=== PATIENT | male | born 1985 | race Caucasian/White ===

== ENCOUNTER 2018-06-30 17:47 | Emergency (ER) | payer OTHER ==
--- NOTE | 2018-06-30 18:11 | PDOC ---
Rapid Medical Evaluation Chief Complaint: Psychiatric Time Seen by Provider: 06/30/18 18:09 Medical Evaluation: 06/30/18 18:10 HPI: Psych history of self injury and passing out [place] in [place] does not remember going home after ETOH and drug use. PE: Multiple lacerations R forearm ORDERS: Tox screen Discharge Disposition - Diagnosis Suicidal behavior - Referrals - Patient Instructions - Post Discharge Activity
[2018-06-30 18:20] VITALS: BMI 19.8
--- NOTE | 2018-06-30 18:49 | PDOC ---
History of Present Illness - General Chief Complaint: Psychiatric Stated Complaint: Psychiatric Time Seen by Provider: 06/30/18 18:09 - History of Present Illness Initial Comments: 06/30/18 19:41 The patient is a 32 year old male with a history of depression, anxiety who presents for evaluation of suicidal ideation and self harm. The patient is accompanied by family who brought the patient for evaluation. The patient notes that he cut his arms with a blade 2 days ago with intent to self harm. He states that 1 day ago, he was drinking alcohol and walking [place]foot [place] and does not remember how he got home. He notes several social stressors in his life worsening his depression. He notes active suicidal ideation with no plan currently but continues to endorse ideation to self harm. He notes worsening insomnia and decreased appetite as well. He otherwise denies fevers, chills, SOB, chest pain, headache, numbness, tingling, weakness, or changes with urination or bowel movements. Past History - Past Medical History Allergies/Adverse Reactions: Allergies Allergy/AdvReac Type Severity Reaction Status Date / Time Penicillins Allergy Verified 06/30/18 18:14 Home Medications: Ambulatory Orders NK [No Known Home Medication] 06/30/18 COPD: No Thyroid Disease: No - Immunization History Immunization Up to Date: Yes - Suicide/Smoking/Psychosocial Hx Smoking History: Current every day smoker Number of Cigarettes Smoked Daily: 10 Information on smoking cessation initiated: No Hx Alcohol Use: No Drug/Substance Use Hx: Yes (COCAINE, NARCOTICS, MARIJUANA) Review of Systems - Review of Systems Comments:: 06/30/18 19:47 Constitutional: No fevers, chills, fatigue, malaise HEENT: No Rhinorrhea, nasal congestion, visual changes Cardiovascular: No chest pain, syncope, palpitations, lightheadedness Respiratory: No Cough, SOB, Hemoptysis, Gastrointestinal: No Abdominal pain, Nausea, Vomiting, Constipation, Diarrhea, Melena Genitourinary: No Dysuria, Frequency, Urgency, Hesitancy, Hematuria, Flank pain Musculoskeletal: No Myalgia, arthralgia Skin: Lacerations to the forearms bilaterally. No rashes, itching, bruising, pallor Neurologic: No Headache, Dizziness, Numbness, Weakness, or Tingling Psychiatric: SI, Self harm, Depression. No Hallucinations. No HI *Physical Exam - Vital Signs Last Vital Signs Temp Pulse Resp BP Pulse Ox 98.5 F 121 H 16 125/106 H 99 06/30/18 18:10 06/30/18 18:10 06/30/18 18:10 06/30/18 18:10 06/30/18 18:10 - Physical Exam Comments: 06/30/18 19:50 General Appearance: Nourished. No Apparent Distress HEENT: EOMI, VERENICE. No Pharyngeal Erythema, Tonsillar Exudate, Tonsillar Erythema Neck: No Cervical Lymphadenopathy Respiratory/Chest: Lungs Clear, Normal Breath Sounds. No Crackles, Rales, Rhonchi, Wheezing Cardiovascular: Regular Rhythm, Regular Rate. No Murmur, Gallops, Rubs Gastrointestinal/Abdominal: Normal Bowel Sounds, Soft. No Guarding, Rebound, Tenderness Musculoskeletal: No CVA Tenderness Extremity: Multiple superficial healing lacerations to the forearms bilaterally. Abrasions to the feet bilaterally. Normal Capillary Refill Integumentary: Normal Color, Dry, Warm Neurologic: Fully Oriented, Alert, Normal Mood/Affect, Normal Response, Heart Score/ECG Review #1 ECG reviewed & interpreted by me at: 19:51 06/30/18 19:52 Normal Sinus Rhythm No Acute ST changes HR 87 QRS 94 QTc 445 ED Treatment Course - LABORATORY CBC & Chemistry Diagram: 06/30/18 18:53 06/30/18 18:53 Medical Decision Making - Medical Decision Making 06/30/18 19:53 The patient is a 32 year old male with a history of depression, anxiety who presents for evaluation of suicidal ideation and self harm. Given the patient' s history and physical exam, we will obtain a cbc, cmp, tylenol level, salicylate, level, alcohol level, drug screen, ekg to evaluate further. The patient's lacerations appears to be healing and are not requiring suture repair currently. We will obtain psychiatric consultation and have discussed the case with Dr. Hayward who will come evaluate the patient. We will continue to monitor and reassess while here in the ED. 06/30/18 21:59 CBC, cmp, tylenol, salicylate, alcohol are unremarkable. Dr. Hayward has come and evaluated the patient and is recommending inpatient psychiatric treatment. The patient is to be evaluated by social work in the morning for placement for inpatient psych. 07/01/18 07:01 Patient signed out to Dr. Vanegas pending social work eval. *DC/Admit/Observation/Transfer Diagnosis at time of Disposition: Suicidal behavior - Referrals - Patient Instructions - Post Discharge Activity
[2018-06-30 19:17] LABS: BASO % 0.7 % (0-2.0); EOS % 2.7 % (0-4.5); HEMATOCRIT 41.8 % (35.4-49); LYMPH % 16.2 % (8-40); MCH 30.6 pg (25.7-33.7); MCHC 33.6 g/dl (32.0-35.9); MEAN CELL VOLUME 91.2 fl (80-96); MEAN PLT VOLUME 9.6 fl (7.5-11.1); MONO % 14.5 % (3.8-10.2); NEUT % 65.9 % (42.8-82.8); PLATELET COUNT 197 K/MM3 (134-434); RBC 4.58 M/mm3 (4.00-5.60); RDW 15.2 % (11.9-15.9); WHITE BLOOD COUNT 7.9 K/mm3 (4.0-10.0)
[2018-06-30 19:42] LABS: ALBUMIN 4.1 g/dl (3.4-5.0); ALK PHOS 63 U/L (45-117); ANION GAP 6 MMOL/L (8-16); BILIRUBIN,TOTAL 0.6 mg/dL (0.2-1); BLOOD UREA NITROGEN 18 mg/dL (7-18); CALCIUM 8.7 mg/dL (8.5-10.1); CHLORIDE 102 mmol/L (98-107); CO2 28 mmol/L (21-32); CREATININE 1.3 mg/dL (0.55-1.3); GLUCOSE,RANDOM 138 mg/dL (74-106); POTASSIUM 3.6 mmol/L (3.5-5.1); SGOT/AST 31 U/L (15-37); SGPT/ALT 18 U/L (13-61); SODIUM 136 mmol/L (136-145)
[2018-06-30] MEDS ORDERED: DIPHTH,PERTUSS(ACELL),TET 0.5 ML DISP.SYRIN IM ONE ×3 (19:47→20:07)
--- NOTE | 2018-06-30 19:47 | CON.PSY ---
Psychiatry Consult Chief Complaint: 41 year old male brought er by mother and other family members following an attempted suicide. patient cut himself on both Fore arems. Hasxbeen feeling depressed and reports feeling fed up with his life. patient also hasa history of Substance abuse. Symptoms: reports: Depressed Mood, Suicidality, Self destructive thoughts - Previous Psychiatric Treatment Outpatient: Less than 6 mos ago Inpatient: Within the last 12 months - Previous Substance Abuse Treatment Outpatient: None, More than 6 mos ago Inpatient: One prior admission - Reason for Previous Treatment Reason for Previous Treatment: Major Depression, Suicidal Attempt/Behavior, Heroin or Other Narcotics - Allergies Allergies: Allergies Allergy/AdvReac Type Severity Reaction Status Date / Time Penicillins Allergy Verified 06/30/18 18:14 - Current Living Status Usual Living Arrangement: With Parent - Current Mental Status Evaluation Appearance: Disheveled Attitude: Guarded - Affect Affect: Constrictive Appropriateness: Appropriate to Content - Mood Mood: Depressed - Speech/Language Expressive: Coherent - Psychomotor Activity Psychomotor Activity: Slowed - Thought Process Thought Process: Intact - Thought Content Hallucinations: Absent Delusions: Absent - Self Perception Self Perception: No Impairment - Cognition Attention: Alert Orientation: Time Memory, Immediate Recall: Intact Memory, Short Term: 3/3 Memory, Remote with Promptin/3 - Concentration Serial Sevens Intact: Yes Simple Calculations Intact: Yes - Abstraction Proverb Interpretation: Intact Judgement: Severely Impaired - Insight Insight: Impaired - Impulse Control Impulse Control: Severly Impaired - Suicidal Ideation Suicidal Ideation: Yes (cut both fore arms) - Homicidal Ideation Homicidal Ideation: No Assessment/Plan 1) Continue with 1;1. 2) Refer for In patient Psych for treatment of Depression and suicide attempt.
--- NOTE | 2018-06-30 20:55 | PDOC ---
Documentation entered by Lowell Pettit SCRIBE, acting as scribe for Inessa Valentin DO. Inessa Valentin DO: This documentation has been prepared by the Hodan estes Matthew, SCRIBE, under my direction and personally reviewed by me in its entirety. I confirm that the documentation accurately reflects all work, treatment, procedures, and medical decision making performed by me. Attending Attestation - Resident Resident Name: Travis Brown - ED Attending Attestation I have performed the following: I have examined & evaluated the patient, The case was reviewed & discussed with the resident, I agree w/resident's findings & plan - HPI HPI: 06/30/18 19:30 Patient is a 32 year old male with a significant past medical history of depression, and anxiety who presents to the ED with complaints of suicidal ideations that began earlier this week. Patient reports having bilateral self inflicted forearm lacerations that he states he did x2 days ago. He reports having no current plan to harm himself, but states he wanted to come into the ED for further evaluation after [place] last [place] while intoxicated. Denies chest pain, sob. Denies nausea, vomiting. Denies fevers, chills. Denies dysuria, hematuria. Denies constipation, diarrhea. Denies out of state travelling, contact with sick individuals. Denies any other symptoms. Allergies: Penicillin. Social history: No smoking. No alcohol. No illicit drugs. Surgical history: None PMD: None - Physicial Exam PE: 06/30/18 19:30 Agree with residents Physical Exam. - Medical Decision Making 06/30/18 20:54 32-year-old male wanted in by his family for evaluation after expressing suicidal ideation and found to have multiple self-inflicted wounds Patient seen by psychiatry, he will be held for further psychiatric evaluation, to 2 PC has been completed
--- NOTE | 2018-07-01 09:22 | PDOC ---
*Physical Exam - Vital Signs Last Vital Signs Temp Pulse Resp BP Pulse Ox 97.5 F L 74 16 114/76 98 07/01/18 06:30 07/01/18 06:30 07/01/18 06:30 07/01/18 06:30 07/01/18 06:30 - Physical Exam Comments: 07/01/18 11:09 Patient signed out to me by Dr. Brown. PATIENT IS MEDICALLY CLEARED; CLEARED FOR PSYCHIATRIC ADMISSION ED Treatment Course - LABORATORY CBC & Chemistry Diagram: 06/30/18 18:53 06/30/18 18:53 - ADDITIONAL ORDERS Additional order review: 06/30/18 18:53 RBC 4.58 MCV 91.2 MCHC 33.6 RDW 15.2 MPV 9.6 Neutrophils % 65.9 Lymphocytes % 16.2 Monocytes % 14.5 H Eosinophils % 2.7 Basophils % 0.7 - Medications Given in the ED: ED Medications Discontinued Medications Generic Name Dose Route Start Last Admin Trade Name Freq PRN Reason Stop Dose Admin Diphtheria/Tetanus/Acell Pertussis 0.5 ml 06/30/18 19:47 06/30/18 20:05 Boostrix - IM 06/30/18 19:48 0.5 ml .ONCE ONE Administration *DC/Admit/Observation/Transfer Diagnosis at time of Disposition: Suicidal behavior - Discharge Dispostion Disposition: HOME Decision to Admit order: No - Referrals Referrals: Donte Hayward MD [Staff Physician] - - Patient Instructions Additional Instructions: You were seen for your suicidal ideation. you were cleared for discharge to your parents by our psychiatrist. please follow up with the psychiatrist who was referred to you within 1 week after discharge, if you have worsening symptoms or new concerning symptoms such as thoughts of harming yourself or others or wanting to , please return to the emergency department. thank you. - Post Discharge Activity
[2018-07-01] MEDS ORDERED: ACETAMINOPHEN 325 MG TABLET (FP) PO ONE (10:42)
[2018-07-01] MEDS ORDERED: IBUPROFEN 600 MG TABLET (FP) PO ONE (10:42)
[2018-07-01 15:22] LABS: URINE APPEARANCE CLEAR; URINE BILIRUBIN NEGATIVE (NEGATIVE); URINE COLOR YELLOW; URINE GLUCOSE (UA) NEGATIVE (NEGATIVE); URINE KETONE 1+ (NEGATIVE); URINE LEUK ESTERASE NEGATIVE (NEGATIVE); URINE NITRITE NEGATIVE (NEGATIVE); URINE PROTEIN TRACE (NEGATIVE); URINE UROBILINOGEN 0.2 mg/dL (0.2-1.0)
[2018-07-01 16:03] LABS: METHADONE, UR NEGATIVE ng/ml (CUTOFF=300); OPIATES, URI NEGATIVE ng/ml (CUTOFF=300); PHENCYCLIDINE,URINE NEGATIVE ng/ml (CUTOFF=25); URINE AMPHETAMINES NEGATIVE ng/ml (CUTOFF=500); URINE BARBITURATES NEGATIVE ng/ml (CUTOFF=200)
[2018-07-01 16:06] LABS: URINE BENZODIAZEPINES POSITIVE ng/ml (CUTOFF=200)
[2018-07-01 16:08] LABS: COCAINE, UR POSITIVE ng/ml (CUTOFF=300)
--- NOTE | 2018-07-01 17:18 | EKG ---
Test Reason : Blood Pressure : / mmHG Vent. Rate : 087 BPM Atrial Rate : 087 BPM P-R Int : 158 ms QRS Dur : 094 ms QT Int : 370 ms P-R-T Axes : 075 072 065 degrees QTc Int : 445 ms NORMAL SINUS RHYTHM POSSIBLE LEFT ATRIAL ENLARGEMENT BORDERLINE ECG NO PREVIOUS ECGS AVAILABLE Confirmed by ROSEMARIE BELLO, MARJ ([id number]) on 07/01/2018 5:18:08 PM Referred By: Confirmed By:MARJ HOUSTON MD
--- NOTE | 2018-07-01 17:56 | PN ---
Progress Note (short form) - Note Progress Note: Psych Follow up. patient seen for Psych follow up. Case discussed with ER staff and Physicians, patient had an uneventful night and day. No reports of any acute self damaging behaviour. MS: alert, pleasant, in good spirits, denies any active suicidal thoughts or plans. Not hallucinating or delusional. cognition intact. Spoke tp patients mother who is willing to bring him home with her HB and take him to [facility] for psych eval and possible treatment for depression and substance abuse. patient agrees to this plan. REC: 1) discharge patient in the care of Parents.
[2018-07-01 19:16] VITALS: BP 117/60; PULSE 82; TEMP 98.1
== END 2018-07-01 19:18 | disposition home or self-care (01) ==
LOC: JER 17:47
DX: T14.91XA Suicide attempt, initial encounter (principal); X79.XXXA Intentional self-harm by blunt object, initial encounter; Y93.89 Activity, other specified; Y92.828 Other wilderness area as the place of occurrence of the external cause; Y99.8 Other external cause status
CPT/HCPCS: 36415; 80053; 80307; 81003; 85025; 90715; 93005; 93010; 99283-25